=== PATIENT | male | born 1990 | race African-American/Black ===

== ENCOUNTER 2020-12-18 02:10 | Emergency (ER) | payer SELFPAY ==
[2020-12-14 16:13] VITALS: BMI 31.6
[2020-12-18 02:11] VITALS: BP 146/79; PULSE 115; RESP 18; TEMP 36.6; O2SAT 99; BMI 31.8
--- NOTE | 2020-12-18 02:22 | EKG12_ITS ---
Test Reason : SOB Blood Pressure : / mmHG Vent. Rate : 110 BPM Atrial Rate : 110 BPM P-R Int : 144 ms QRS Dur : 092 ms QT Int : 386 ms P-R-T Axes : 044 072 025 degrees QTc Int : 522 ms Sinus tachycardia Prolonged QT Abnormal ECG Confirmed by LM GATES, ALESSANDRA ([id number]), graphics editor CHI WADE ([id number]) on 12/20/2020 1:52:21 PM Referred By: Confirmed By:ALESSANDRA AMATO MD
[2020-12-18 02:23] VITALS: BP 146/79; PULSE 115; RESP 18; TEMP 36.6; O2SAT 99
--- NOTE | 2020-12-18 02:25 | EDS_ITS ---
HPI History of Present Illness Chief Complaint: Shortness of Breath Informant: patient Narrative Narrative: 30-year-old male presents with persistent dry cough. He was diagnosed with COVID-19 while in [place] at the beginning of October. He is recovery was complicated by pulmonary embolism and has been on Xarelto. He follows up locally with Dr. Estrada for the pulmonary embolism and is awaiting an appointment with Dr. Mcclure for pulmonology here. He has a history of a cardiomyopathy and sees cardiology at [facility]. Patient states that since he had Covid he has had a persistently higher than normal heart rate. He denies any leg swelling. He notes the cough is dry and at times he has posttussive emesis. At his appointment on the with Dr. Herrera bc blood work. This was essentially normal (CBC, CMP, D-dimer). Patient presents tonight looking for relief from his cough. He has tried Tessalon multiple antibiotics and multiple [id number] cough medications. He has a nebulizer machine with albuterol at home. [facility] Medical History COVID-19 COVID-19 Hemoptysis Hypertrophic cardiomyopathy Pulmonary edema Pulmonary embolism Respiratory failure with hypoxia Tonsillectomy planned Home Medications fluticasone propionate 230 mcg-salmeterol 21 mcg/actuation HFA inhaler 2 puff INHALATION BID 12/12/20 [History Last Taken Unknown] metoprolol succinate 50 mg tablet,extended release 24 hr 50 mg PO DAILY 12/12/20 [History Last Taken Unknown] rivaroxaban 15 mg tablet 20 mg PO DAILY 12/12/20 [History Last Taken Unknown] albuterol sulfate 5 mg/mL(0.5 %) solution for nebulization 2.5 mg INHALATION Q6H PRN #20 ml 12/14/20 [Rx Last Taken Unknown] benzonatate [Tessalon Perles] 100 mg PO TID PRN #20 cap 12/18/20 [Rx Last Taken Unknown] codeine-guaifenesin 5 ml PO Q6H PRN #237 ml 12/18/20 [Rx Last Taken Unknown] ipratropium-albuterol 3 ml INHALATION Q6H PRN #90 ml 12/18/20 [Rx Last Taken Unknown] Allergy/AdvReac Type Severity Reaction Status Date / Time peanut Allergy Severe Hives Verified 12/18/20 02:18 Social History Smoking Status: Never smoker alcohol intake: current alcohol intake frequency: a few times a month Alcohol type: hard liquor substance use type: does not use jose/sikhism: Alevism ROS ROS ED Constitutional Constitutional ED: Denies chills or weight loss Eyes Eyes: Denies change in vision or diplopia ENT ENT ED: Denies ear pain, rhinorrhea or sore throat Cardiovascular Cardiovascular: Reports racing heartbeat; Denies chest pain, orthopnea or palpitations Respiratory/Chest Respiratory/Chest: Reports cough and dyspnea; Denies orthopnea Gastrointestinal Gastrointestinal: Denies abdominal pain, diarrhea, nausea or vomiting Genitourinary Genitourinary ED: Denies dysuria, hematuria or urinary frequency Musculoskeletal Musculoskeletal: Denies arthralgias or myalgias Integumentary Denies abscess or rash Neurologic Neurologic: Denies headache(s) or weakness Psychiatric Psychiatric: Denies anxiety, depression, suicidal ideation or suicidal thoughts Endocrine Endocrinology: Denies polydipsia, polyphagia or polyuria Allergic/Immunologic Allergic/Immunologic ED: Denies mouth swelling, tongue swelling or urticaria EXAM Physical Exam Const Vital Signs: 12/18/20 02:11 12/18/20 02:22 12/18/20 02:23 Temperature 97.8 F 97.8 F Temperature Source Temporal Temporal Pulse Rate 115 H 115 H Respiratory Rate 18 18 Respiratory Effort Non-Labored Short of Breath Respiratory Depth Normal Respiratory Pattern Normal Blood Pressure 146/79 H 146/79 H Blood Pressure Mean 101 101 Pulse Ox 99 99 Oxygen Delivery Method Room Air Room Air 12/18/20 02:38 Temperature Temperature Source Pulse Rate 105 H Respiratory Rate 18 Respiratory Effort Respiratory Depth Respiratory Pattern Blood Pressure Blood Pressure Mean Pulse Ox Oxygen Delivery Method Positive well nourished and well developed General Appearance ED: well developed HEENT Reports normocephalic, head/scalp atraumatic and moist mucous membranes Eyes PERRL and EOMs intact bilaterally Neck no lymphadenopathy, supple and no JVD Resp normal respiratory effort and clear to auscultation bilaterally Resp Narrative: Patient has a persistent dry cough. Cardio regular rate, regular rhythm and no murmurs GI normal to inspection, nondistended, normoactive bowel sounds and non-tender Palpation: soft Back/Spine no CVA tenderness and normal ROM Extremity normal to inspection General Extremety ED: Negative for edema General Extremity: Negative for edema Neuro oriented x3 and CN's II-XII intact bilaterally Sensorium / Orientation: alert Motor Exam: strength 5/5 throughout Psych mental status grossly normal Mood & Affect: Negative for depressed or tearful Skin no rashes or lesions noted and no wounds MDM MDM MDM Narrative Medical decision making narrative: My interpretation of the chest x-ray is right elevation of the hemidiaphragm. Patient has a resting sinus tachycardia. I gave the patient a DuoNeb which he states seemed to help better than the albuterol. He has tried Tessalon with no significant relief but is willing to try them again. I can write for some codeine cough medicine but advised him this is not something he wants to take long-term. I spoke to him about med icines containing dextromethorphan seem to be better than guaifenesin. We talked about humidifying the room he is in. At this point patient will be discharged home. Radiography Diagnostic Testing: Radiology Impression Chest X-Ray 12/18/20 02:30 IMPRESSION: Elevation of the right hemidiaphragm with right costophrenic sulcus disease. This could be pneumonia.. at 0309 Reported and signed by: Kody Ferguson MD Electronically Signed: Kody Ferguson MD at 3:08 EDT Tel , Service support , EKG Initial EKG: Attestation: I personally reviewed and interpreted this EKG as follows: Comments: EKG demonstrates a sinus tachycardia at a rate of 110. Discharge Plan Triage Chief Complaint: Shortness of Breath Other Complaint: Cough ED Provider: Lukas Esqueda Dx/Rx/DC Orders Clinical Impression: Chronic cough, COVID-19 Prescriptions: New ipratropium-albuterol 0.5 mg-3 mg(2.5 mg base)/3 mL solution for nebulization 3 ml inhalation Q6H PRN (Reason: shortness of breath or wheezing) Qty: 90 RF: 0 codeine-guaifenesin 10-100 mg/5 mL liquid 5 ml PO Q6H PRN (Reason: cough) Qty: 237 RF: 0 benzonatate [Tessalon Perles] 100 mg capsule 100 mg PO TID PRN (Reason: cough) Qty: 20 RF: 0 No Action fluticasone propion-salmeterol 230-21 mcg/actuation HFA aerosol inhaler 2 puff inhalation BID RF: 0 metoprolol succinate 50 mg tablet extended release 24 hr 50 mg PO DAILY RF: 0 rivaroxaban 15 mg tablet 20 mg PO DAILY RF: 0 albuterol sulfate 5 mg/mL solution for nebulization 2.5 mg inhalation Q6H PRN (Reason: shortness of breath or wheezing) Qty: 20 RF: 0 Referrals: COURTNEY WEBB [Other] Activity Restrictions/Additional Instructions: Follow-up with your doctors as scheduled. [facility] has a [facility] clinic. You may benefit from making an appointment there. Contact information can be found on the Internet Disposition Disposition: Home, self care
--- NOTE | 2020-12-18 02:30 | RAD_ITS ---
HISTORY: cough EXAM: XR Chest 1 View: COMPARISON: None FINDINGS: # of images incl. paperwork: 1 Elevation of the right hemidiaphragm with right costophrenic sulcus disease The left lung is clear Heart is not enlarged. No acute osseous pathology perceived. Pulmonary vascularity is distinct. No effusions. RAD/Chest 1 View (Portable) IMPRESSION: Elevation of the right hemidiaphragm with right costophrenic sulcus disease. This could be pneumonia.. at 0309 Reported and signed by: Kody Ferguson MD Electronically Signed: Kody Ferguson MD at 3:08 EDT Tel , Service support ,
[2020-12-18] MEDS: Ipratropium/Albuterol Sulfate 3 ML AMPUL.NEB INHALATION (02:37)
[2020-12-18 02:38] VITALS: PULSE 105; RESP 18
[2020-12-18 03:38] VITALS: BP 132/86; PULSE 110; RESP 16; O2SAT 95
== END 2020-12-18 03:39 | disposition home or self-care (01) ==
PROVIDERS: Emergency Provider Emergency Medicine
DX: R05 Cough (principal); U07.1 COVID-19; I42.2 Other hypertrophic cardiomyopathy; Z79.51 Long term (current) use of inhaled steroids; Z79.899 Other long term (current) drug therapy
CPT/HCPCS: 71045; 93005; 94640; 99282; A4216